=== PATIENT | female | born 1995 | race African-American/Black ===

== ENCOUNTER 2017-09-08 01:46 | Emergency (ER) | payer BC ==
[~2017-09-08] VITALS: Ht 170.2 cm; Wt 59.0 kg
[~2017-09-08 01:46] MED LIST: FOLI-43 PO; OXCA300T31 PO; PLAQUENIL PO; PRED5TAB48 PO
[2017-09-08] MEDS ORDERED: ACETAMINOPHEN 325MG TABLET PO STA (02:10)
[2017-09-08] MEDS ORDERED: SODIUM CHLORIDE 0.9% 1000ML BAG (SEPSIS BOLUS) IV ONE (02:15)
[2017-09-08 02:46] LABS: BASOPHILS % 0.3 % (0.0-2.0); EOSINOPHILS % 0.4 % (0.0-5.0); HEMATOCRIT. 22.4 % (36.0-48.0); HEMOGLOBIN. 7.7 g/dL (12.0-16.0); LYMPHOCYTES % 16.8 % (20.0-50.0); MEAN CORPUSCULAR HEMOGLOBIN 28.4 pg (28.0-32.0); MEAN CORPUSCULAR VOLUME 82.8 fL (81.0-99.0); MONOCYTES % 3.1 % (2.0-8.0); NEUTROPHILS % 79.4 % (40.0-76.0); RED BLOOD CELL COUNT 2.71 mill/uL (4.2-5.4); RED CELL DISTRIBUTION WIDTH 15.5 % (11.6-14.6)
[2017-09-08 02:51] LABS: CHLORIDE 102 mEq/L (98-107)
[2017-09-08 02:53] LABS: INR 1.2; PROTHROMBIN TIME 12.6 sec (9.4-11.6)
[2017-09-08 03:22] LABS: CLARITY URINE CLOUDY (CLEAR); COLOR URINE YELLOW (YELLOW); KETONES URINE NEGATIVE (NEGATIVE); LEUKOCYTE ESTERASE URINE 3+ (NEGATIVE); NITRITE URINE POSITIVE (NEGATIVE); OCCULT BLOOD URINE 2+ (NEGATIVE); PROTEIN URINE 2+ (NEGATIVE); SPECIFIC GRAVITY URINE 1.018 (1.005-1.030)
[2017-09-08 03:50] LABS: MEAN PLATELET VOLUME 11.2 fl (7.4-10.4)
[2017-09-08] MEDS ORDERED: POTASSIUM CHLORIDE 20MEQ TABLET SR PO ONE (04:30)
[2017-09-08] MEDS ORDERED: CEFTRIAXONE 1 G PREMIX 50 ML IV ONE (04:30)
[2017-09-08] MEDS ORDERED: HYDROCODONE/ACETAMINOPHEN 5/325MG TABLET PO ONE (05:15)
[2017-09-08 06:22] VITALS: BP 126/74
== END 2017-09-08 06:37 | disposition home or self-care (01) ==
LOC: ER 01:46
DX: N30.00 Acute cystitis without hematuria (principal); D64.9 Anemia, unspecified; E87.6 Hypokalemia; M32.9 Systemic lupus erythematosus, unspecified; R56.9 Unspecified convulsions; M41.9 Scoliosis, unspecified; F31.9 Bipolar disorder, unspecified
CPT/HCPCS: 36415; 71045; 80053; 81003; 81025; 85025; 85610; 87077; 87086; 87186; 87804; 93005; 96365; 99285; J0696; J7030; Z7610

== ENCOUNTER 2017-11-22 02:32 | Emergency (ER) | payer BC ==
[~2017-11-22] VITALS: Ht 175.3 cm; Wt 52.0 kg
[2017-11-22] MEDS ORDERED: OXCARBAZEPINE 300MG TABLET PO ONE (03:00)
[2017-11-22] MEDS ORDERED: SODIUM CHLORIDE 0.9% 1,000 ML IV ONE (03:00)
[2017-11-22 03:22] LABS: CHLORIDE 103 mEq/L (98-107)
[2017-11-22 03:26] LABS: BASOPHILS % 0.4 % (0.0-2.0); EOSINOPHILS % 3.2 % (0.0-5.0); HEMATOCRIT. 25.3 % (36.0-48.0); HEMOGLOBIN. 8.3 g/dL (12.0-16.0); LYMPHOCYTES % 29.8 % (20.0-50.0); MEAN CORPUSCULAR HEMOGLOBIN 27.7 pg (28.0-32.0); MEAN CORPUSCULAR VOLUME 83.9 fL (81.0-99.0); MEAN PLATELET VOLUME 9.4 fl (7.4-10.4); MONOCYTES % 3.1 % (2.0-8.0); NEUTROPHILS % 63.5 % (40.0-76.0); PLATELET 141 x1000/uL (130-400); RED BLOOD CELL COUNT 3.01 mill/uL (4.2-5.4); RED CELL DISTRIBUTION WIDTH 17.4 % (11.6-14.6)
[2017-11-22] MEDS ORDERED: ONDANSETRON HCL 4MG/2ML VIAL IV ONE (03:30)
[2017-11-22] MEDS ORDERED: MORPHINE SULFATE 4 MG/ML CPJ (NOT FOR IM USE) IV ONE (03:30)
[2017-11-22 09:06] VITALS: BP 134/76
== END 2017-11-22 09:17 | disposition home or self-care (01) ==
LOC: ER 02:35
DX: G40.909 Epilepsy, unspecified, not intractable, without status epilepticus (principal); M32.9 Systemic lupus erythematosus, unspecified; D64.9 Anemia, unspecified; F12.10 Cannabis abuse, uncomplicated; Z98.890 Other specified postprocedural states; Z91.018 Allergy to other foods; Z88.6 Allergy status to analgesic agent
CPT/HCPCS: 36415; 70450; 80053; 81025; 85025; 96374; 96375; 99285; J2270; J2405; J7030; Z7610

== ENCOUNTER 2018-02-26 19:42 | Inpatient (IN) | payer BC, MEDICAID ==
[~2018-02-26] VITALS: Ht 175.3 cm; Wt 56.7 kg
[2018-02-26] MEDS ORDERED: IBUPROFEN 600MG TABLET PO ONE (22:15)
[2018-02-26] MEDS ORDERED: SODIUM CHLORIDE 0.9% 1,000 ML IV ONE (22:15)
[2018-02-26 22:54] LABS: BASOPHILS % 0.3 % (0.0-2.0); EOSINOPHILS % 0.1 % (0.0-5.0); HEMATOCRIT. 34.9 % (36.0-48.0); HEMOGLOBIN. 11.6 g/dL (12.0-16.0); LYMPHOCYTES % 9.9 % (20.0-50.0); MEAN CORPUSCULAR HEMOGLOBIN 27.8 pg (28.0-32.0); MEAN CORPUSCULAR VOLUME 83.9 fL (81.0-99.0); MEAN PLATELET VOLUME 9.9 fl (7.4-10.4); MONOCYTES % 4.5 % (2.0-8.0); NEUTROPHILS % 85.2 % (40.0-76.0); PLATELET 55 x1000/uL (130-400); RED BLOOD CELL COUNT 4.16 mill/uL (4.2-5.4); RED CELL DISTRIBUTION WIDTH 13.8 % (11.6-14.6)
[2018-02-26 23:07] LABS: CHLORIDE 98 mEq/L (98-107)
[2018-02-27] VITALS (7 sets, daily range): BP systolic 130–150; BP diastolic 79–95
[2018-02-27] MEDS ORDERED: MORPHINE SULFATE 4 MG/ML CPJ (NOT FOR IM USE) IV ONE (02:45)
[2018-02-27] MEDS ORDERED: OXCARBAZEPINE 300MG TABLET PO ONE (02:45)
[2018-02-27] MEDS ORDERED: SODIUM CHLORIDE 0.9% 1,000 ML IV ONE (02:45)
[2018-02-27 03:20] LABS: *AMPHETAMINES SCREEN URINE NEGATIVE (NEGATIVE); *BARBITURATES SCREEN URINE NEGATIVE (NEGATIVE); *BENZODIAZEPINES SCREEN URINE NEGATIVE (NEGATIVE); CLARITY URINE CLOUDY (CLEAR); COLOR URINE YELLOW (YELLOW); KETONES URINE NEGATIVE (NEGATIVE); LEUKOCYTE ESTERASE URINE NEGATIVE (NEGATIVE); NITRITE URINE NEGATIVE (NEGATIVE); OCCULT BLOOD URINE 3+ (NEGATIVE); PH URINE 6.5 (4.5-8.0); PROTEIN URINE 3+ (NEGATIVE); SPECIFIC GRAVITY URINE 1.015 (1.005-1.030)
[2018-02-27 03:21] LABS: *COCAINE SCREEN URINE NEGATIVE (NEGATIVE); METHADONE URINE SCREEN NEGATIVE (NEGATIVE); PHENCYCLIDINE URINE SCREEN NEGATIVE (NEGATIVE)
[2018-02-27 03:31] LABS: CANNABINOID URINE SCREEN PRESUMTIVE POSITIVE (NEGATIVE); OPIATES URINE SCREEN PRESUMTIVE POSITIVE (NEGATIVE)
[2018-02-27] MEDS ORDERED: DIPHENHYDRAMINE 25MG CAPSULE PO ONE (04:30)
[2018-02-27] MEDS ORDERED: OXCA600T20 PO (10:06)
[2018-02-27] MEDS ORDERED: OXCA600T5 PO (10:06)
[2018-02-27] MEDS ORDERED: WARF10TA21 PO (10:10)
[2018-02-27] MEDS ORDERED: LISI10TA5 PO (10:11)
[2018-02-27] MEDS ORDERED: FERR236T3 MT (10:17)
[2018-02-27] MEDS ORDERED: ENTE0.5T4 PO (10:25)
[2018-02-27] MEDS ORDERED: MYCO250C MT (10:27)
[2018-02-27] MEDS ORDERED: CLONIDINE 0.1MG TABLET PO PRN (10:45)
[2018-02-27] MEDS ORDERED: IPRATROPIUM/ALBUTEROL 0.5-3(2.5)MG/3ML NEB INH PRN (10:45)
[2018-02-27] MEDS ORDERED: MAGNESIUM/ALUMINUM HYDROXIDE/SIMETHICONE 30ML UDC PO PRN (10:45)
[2018-02-27] MEDS ORDERED: ENTECAVIR 0.5 MG PO SCH (10:45)
[2018-02-27] MEDS ORDERED: ACETAMINOPHEN 650MG SUPP PR PRN (10:45)
[2018-02-27] MEDS ORDERED: ACETAMINOPHEN 650MG/20.3ML UDC GT PRN (10:45)
[2018-02-27] MEDS: MYCOPHENOLATE MOFETIL 250MG CAPSULE PO SCH ×2 (11:46→17:55)
[2018-02-27 11:49] LABS: BASOPHILS % 0.1 % (0.0-2.0); HEMATOCRIT. 30.1 % (36.0-48.0); HEMOGLOBIN. 10.2 g/dL (12.0-16.0); LYMPHOCYTES % 12.9 % (20.0-50.0); MEAN CORPUSCULAR VOLUME 82.8 fL (81.0-99.0); MEAN PLATELET VOLUME 8.4 fl (7.4-10.4); MONOCYTES % 6.3 % (2.0-8.0); NEUTROPHILS % 80.7 % (40.0-76.0); RED BLOOD CELL COUNT 3.63 mill/uL (4.2-5.4); RED CELL DISTRIBUTION WIDTH 13.6 % (11.6-14.6)
[2018-02-27] MEDS: MORPHINE SULFATE 4 MG/ML CPJ (NOT FOR IM USE) IV PRN ×2 (11:50→20:24)
[2018-02-27] MEDS ORDERED: SUMATRIPTAN SUCCINATE 6MG/0.5ML VIAL SUBCUT SCH (12:00)
[2018-02-27 12:03] LABS: PROTHROMBIN TIME 71.9 sec (9.1-11.1)
[2018-02-27] MEDS: PREDNISONE 20MG TABLET PO SCH (12:03)
[2018-02-27] MEDS: HYDROXYCHLOROQUINE SULFATE 200MG TABLET PO SCH (12:03)
[2018-02-27] MEDS: PREDNISONE 1MG TABLET PO SCH (12:03)
[2018-02-27] MEDS: OXCARBAZEPINE 300MG TABLET PO SCH ×2 (12:04→20:23)
[2018-02-27] MEDS ORDERED: METH8TAB5 PO (12:08)
[2018-02-27 12:11] LABS: CHLORIDE 105 mEq/L (98-107)
[2018-02-27 12:54] LABS: INR 7.4
[2018-02-27] MEDS ORDERED: PHYTONADIONE 1MG/0.5ML AMP IM ONE (13:00)
[2018-02-27] MEDS ORDERED: POTASSIUM CHLORIDE 20MEQ TABLET SR PO PRN (13:00)
[2018-02-27] MEDS ORDERED: PHYTONADIONE 1MG/0.5ML AMP PO ONE (13:30)
[2018-02-27] MEDS: SODIUM CHLORIDE 0.45% 1,000 ML IV SCH (13:48)
[2018-02-27] MEDS ORDERED: PHYTONADIONE 5 MG/5ML ORAL SYRINGE PO SCH (14:30)
[2018-02-27] MEDS ORDERED: LORAZEPAM 2MG/ML CPJ IV PRN (14:45)
[2018-02-27] MEDS: HYDROCODONE/ACETAMINOPHEN 5/325MG TABLET PO PRN ×2 (14:53→22:06)
[2018-02-27] MEDS: METHYLPREDNISOLONE 4MG TABLET PO SCH (15:00)
[2018-02-27 16:06] LABS: CLARITY URINE CLOUDY (CLEAR); COLOR URINE RED (YELLOW); KETONES URINE TRACE (NEGATIVE); LEUKOCYTE ESTERASE URINE 1+ (NEGATIVE); NITRITE URINE NEGATIVE (NEGATIVE); OCCULT BLOOD URINE 3+ (NEGATIVE); PH URINE 6.5 (4.5-8.0); PROTEIN URINE 3+ (NEGATIVE); UROBILINOGEN URINE 0.2 E.U./dL (0.2-1.0)
[2018-02-27 16:41] LABS: *AMPHETAMINES SCREEN URINE NEGATIVE (NEGATIVE); *BENZODIAZEPINES SCREEN URINE NEGATIVE (NEGATIVE); *COCAINE SCREEN URINE NEGATIVE (NEGATIVE); METHADONE URINE SCREEN NEGATIVE (NEGATIVE)
[2018-02-27 16:43] LABS: *BARBITURATES SCREEN URINE NEGATIVE (NEGATIVE); CANNABINOID URINE SCREEN NEGATIVE (NEGATIVE); PHENCYCLIDINE URINE SCREEN NEGATIVE (NEGATIVE)
[2018-02-27 16:44] LABS: OPIATES URINE SCREEN PRESUMTIVE POSITIVE (NEGATIVE)
[2018-02-27] MEDS ORDERED: MORPHINE SULFATE 4 MG/ML CPJ (NOT FOR IM USE) IV NR (17:45)
[2018-02-27] MEDS: FAMOTIDINE 20MG/2ML VIAL IV SCH (20:23)
[2018-02-27] MEDS: SODIUM CHLORIDE 0.9% INJ 3ML FLUSH IVF SCH (22:09)
[2018-02-28] VITALS (8 sets, daily range): BP systolic 142–148; BP diastolic 77–94
[2018-02-28] MEDS: ACETAMINOPHEN 325MG TABLET PO PRN ×2 (00:55→12:08)
[2018-02-28] MEDS: MORPHINE SULFATE 4 MG/ML CPJ (NOT FOR IM USE) IV PRN ×4 (02:39→21:07)
[2018-02-28] MEDS: SODIUM CHLORIDE 0.45% 1,000 ML IV SCH ×3 (02:40→22:28)
[2018-02-28] MEDS: ONDANSETRON HCL 4MG/2ML INJ IV PRN ×2 (04:07→21:07)
[2018-02-28] MEDS: HYDROCODONE/ACETAMINOPHEN 5/325MG TABLET PO PRN ×3 (04:07→20:11)
[2018-02-28] MEDS: SODIUM CHLORIDE 0.9% INJ 3ML FLUSH IVF SCH ×3 (05:02→22:04)
[2018-02-28 05:18] LABS: BASOPHILS % 0.1 % (0.0-2.0); EOSINOPHILS % 0.1 % (0.0-5.0); HEMATOCRIT. 28.9 % (36.0-48.0); HEMOGLOBIN. 9.7 g/dL (12.0-16.0); LYMPHOCYTES % 10.9 % (20.0-50.0); MEAN CORPUSCULAR HEMOGLOBIN 27.6 pg (28.0-32.0); MEAN CORPUSCULAR VOLUME 82.5 fL (81.0-99.0); MONOCYTES % 6.4 % (2.0-8.0); NEUTROPHILS % 82.5 % (40.0-76.0); RED BLOOD CELL COUNT 3.51 mill/uL (4.2-5.4); RED CELL DISTRIBUTION WIDTH 14.1 % (11.6-14.6)
[2018-02-28 05:22] LABS: INR 1.6; PROTHROMBIN TIME 15.6 sec (9.1-11.1)
[2018-02-28 05:29] LABS: CHLORIDE 102 mEq/L (98-107)
[2018-02-28 05:32] LABS: HDL CHOLESTEROL 24 mg/dL (40-59); LDL CHOLESTEROL 105 mg/dL (5-100)
[2018-02-28] MEDS ORDERED: POTASSIUM CHLORIDE 20MEQ TABLET SR PO SCH ×2 (06:45→10:00)
[2018-02-28] MEDS: METHYLPREDNISOLONE 4MG TABLET PO SCH (09:56)
[2018-02-28] MEDS: CEFTRIAXONE 1 G PREMIX 50 ML IV SCH (09:56)
[2018-02-28] MEDS: MYCOPHENOLATE MOFETIL 250MG CAPSULE PO SCH ×2 (09:56→20:11)
[2018-02-28] MEDS: FAMOTIDINE 20MG/2ML VIAL IV SCH ×2 (09:56→22:09)
[2018-02-28] MEDS: OXCARBAZEPINE 300MG TABLET PO SCH ×2 (09:56→22:04)
[2018-02-28] MEDS: HYDROXYCHLOROQUINE SULFATE 200MG TABLET PO SCH (10:19)
[2018-02-28] MEDS ORDERED: DIATR MEGLU/DIATRIZOATE SOLN 30ML PO NR (11:00)
[2018-02-28] MEDS: METOCLOPRAMIDE HCL 10MG/2ML VIAL IV SCH ×3 (12:08→23:58)
[2018-02-28] MEDS ORDERED: IOHEXOL-300 100 ML BOTTLE ONE ×2 (12:21→14:16)
[2018-02-28 12:49] LABS: HCG SCREEN NEGATIVE
[2018-02-28] MEDS: DOCUSATE SODIUM 250MG CAPSULE PO SCH (15:15)
[2018-02-28] MEDS: LORAZEPAM 2MG/ML CPJ IV PRN ×2 (17:45→23:58)
[2018-02-28] MEDS ORDERED: WARFARIN SODIUM 5MG TABLET PO SCH (18:00)
[2018-02-28 19:09] LABS: TOTAL IRON BINDING CAPACITY 221 ug/dL (250-450)
[2018-02-28 19:39] LABS: FOLIC ACID (FOLATE) SERUM 12.8 ng/mL (>5.38)
[2018-02-28] MEDS ORDERED: ALPRAZOLAM 0.25 MG TABLET PO PRN (21:30)
[2018-02-28] MEDS: METHYLPREDNISOLONE SOD SUCC 125 MG/2 ML VIAL IV SCH (23:57)
[2018-02-28] MEDS: PREGABALIN 25MG CAPSULE PO SCH (23:57)
[2018-03-01] VITALS (7 sets, daily range): BP systolic 136–153; BP diastolic 83–105
[2018-03-01] MEDS: METOCLOPRAMIDE HCL 10MG/2ML VIAL IV SCH ×4 (06:42→23:52)
[2018-03-01] MEDS: METHYLPREDNISOLONE SOD SUCC 125 MG/2 ML VIAL IV SCH ×4 (06:42→23:52)
[2018-03-01] MEDS: SODIUM CHLORIDE 0.45% 1,000 ML IV SCH ×3 (06:43→18:37)
[2018-03-01] MEDS: SODIUM CHLORIDE 0.9% INJ 3ML FLUSH IVF SCH ×3 (06:45→22:43)
[2018-03-01 06:51] LABS: HEMATOCRIT. 25.2 % (36.0-48.0); HEMOGLOBIN. 8.6 g/dL (12.0-16.0); MEAN CORPUSCULAR HEMOGLOBIN 28.2 pg (28.0-32.0); MEAN CORPUSCULAR VOLUME 82.2 fL (81.0-99.0); RED BLOOD CELL COUNT 3.07 mill/uL (4.2-5.4); RED CELL DISTRIBUTION WIDTH 14.1 % (11.6-14.6)
[2018-03-01 06:57] LABS: D-DIMER 3.97 mg/L FEU (<0.50); INR 1.2; PARTIAL THROMBOPLASTIN TIME 27.8 sec (23.4-31.0); PROTHROMBIN TIME 11.8 sec (9.1-11.1)
[2018-03-01 07:13] LABS: CHLORIDE 102 mEq/L (98-107)
[2018-03-01 07:30] LABS: AMYLASE 23 IU/L (25-115)
[2018-03-01] MEDS: OXCARBAZEPINE 300MG TABLET PO SCH ×2 (09:47→22:37)
[2018-03-01] MEDS: CEFTRIAXONE 1 G PREMIX 50 ML IV SCH (09:48)
[2018-03-01] MEDS: FAMOTIDINE 20MG/2ML VIAL IV SCH ×2 (09:48→20:45)
[2018-03-01] MEDS: MORPHINE SULFATE 4 MG/ML CPJ (NOT FOR IM USE) IV PRN ×3 (09:58→23:42)
[2018-03-01] MEDS: HYDROXYCHLOROQUINE SULFATE 200MG TABLET PO SCH (09:58)
[2018-03-01] MEDS: MYCOPHENOLATE MOFETIL 250MG CAPSULE PO SCH ×3 (09:58→22:37)
[2018-03-01] MEDS: DOCUSATE SODIUM 250MG CAPSULE PO SCH (09:58)
[2018-03-01] MEDS: PREGABALIN 25MG CAPSULE PO SCH (09:59)
[2018-03-01 13:06] LABS: DRVVT LA 99.5 sec (0.0-47.0); PTT-LA 56.5 sec (0.0-51.9)
[2018-03-01] MEDS: ALPRAZOLAM 0.5 MG TABLET PO NR ×2 (13:33→13:38)
[2018-03-01] MEDS ORDERED: WARFARIN SODIUM 7.5MG TABLET PO SCH (18:00)
[2018-03-01] MEDS: ONDANSETRON HCL 4MG/2ML INJ IV PRN (18:36)
[2018-03-01] MEDS: HYDROCODONE/ACETAMINOPHEN 5/325MG TABLET PO PRN (19:05)
[2018-03-01] MEDS: PREGABALIN 75MG CAPSULE PO SCH (20:48)
[2018-03-02 00:08] VITALS: BP 137/94
[2018-03-02 04:00] VITALS: BP 128/83
[2018-03-02] MEDS: METHYLPREDNISOLONE SOD SUCC 125 MG/2 ML VIAL IV SCH ×2 (05:21→12:58)
[2018-03-02] MEDS: METOCLOPRAMIDE HCL 10MG/2ML VIAL IV SCH ×2 (05:21→12:58)
[2018-03-02] MEDS: SODIUM CHLORIDE 0.45% 1,000 ML IV SCH (05:22)
[2018-03-02] MEDS: SODIUM CHLORIDE 0.9% INJ 3ML FLUSH IVF SCH (05:22)
[2018-03-02 05:27] LABS: DRVVT LA CONFIRMATION 1.4 ratio (0.8-1.2); DRVVT MIX LA 49.6 sec (0.0-47.0); LUPUS ANTICOAG INTERPRETATION Comment: (.); PTT-LA INCUB MIX 47.2 sec (0.0-48.9); PTT-LA MIX 43.4 sec (0.0-48.9)
[2018-03-02 05:38] VITALS: BP 128/83
[2018-03-02 07:37] LABS: BASOPHILS % 0.1 % (0.0-2.0); HEMATOCRIT. 23.7 % (36.0-48.0); HEMOGLOBIN. 8.3 g/dL (12.0-16.0); LYMPHOCYTES % 15.1 % (20.0-50.0); MEAN CORPUSCULAR HEMOGLOBIN 28.3 pg (28.0-32.0); MEAN CORPUSCULAR VOLUME 81.1 fL (81.0-99.0); MONOCYTES % 9.1 % (2.0-8.0); NEUTROPHILS % 75.7 % (40.0-76.0); RED BLOOD CELL COUNT 2.92 mill/uL (4.2-5.4); RED CELL DISTRIBUTION WIDTH 14.1 % (11.6-14.6)
[2018-03-02 08:00] VITALS: BP 134/94
[2018-03-02] MEDS ORDERED: ALPRAZOLAM 0.5 MG TABLET PO SCH (09:00)
[2018-03-02] MEDS: HYDROXYCHLOROQUINE SULFATE 200MG TABLET PO SCH (09:01)
[2018-03-02] MEDS: PREGABALIN 75MG CAPSULE PO SCH (09:02)
[2018-03-02] MEDS: DOCUSATE SODIUM 250MG CAPSULE PO SCH (09:02)
[2018-03-02] MEDS: FAMOTIDINE 20MG/2ML VIAL IV SCH (09:02)
[2018-03-02] MEDS: OXCARBAZEPINE 300MG TABLET PO SCH (09:02)
[2018-03-02 09:05] LABS: G6PD RBC 3.06 x10E6/uL (3.77-5.28)
[2018-03-02] MEDS: MORPHINE SULFATE 4 MG/ML CPJ (NOT FOR IM USE) IV PRN (09:09)
[2018-03-02] MEDS: LORAZEPAM 2MG/ML CPJ IV PRN (10:12)
[2018-03-02] MEDS ORDERED: MORPHINE SULFATE 4 MG/ML CPJ (NOT FOR IM USE) IV PRN (10:15)
[2018-03-02] MEDS ORDERED: LORAZEPAM 2MG/ML CPJ IM PRN (10:15)
[2018-03-02 12:00] VITALS: BP 149/98
[2018-03-02 12:04] VITALS: BP 149/98
[2018-03-02] MEDS ORDERED: CYANOCOBALAMIN 1000MCG/ML VIAL IM NR (12:45)
[2018-03-02] MEDS: ONDANSETRON HCL 4MG/2ML INJ IV PRN (12:54)
[2018-03-03 09:06] LABS: ANGIOTENSION CONVERTING ENZYME 39 U/L (14-82); ANTI-DNA DOUBLE STRANDED QUANT 102 IU/mL (0-9); COMPLEMENT C3 79 mg/dL (82-167); GLOMERULAR BASEMENT MEMB AB 4 units (0-20); RNP ANTIBODY 5.9 AI (0.0-0.9); SMITH ANTIBODY 7.2 AI (0.0-0.9)
[2018-03-03 15:06] LABS: ANTI-CARDIOLIPIN AB IGA < 9 APL U/mL (0-11); ANTI-CARDIOLIPIN AB IGG 21 GPL U/mL (0-14); ANTI-CARDIOLIPIN AB IGM 69 MPL U/mL (0-12); ANTI-MYELOPEROXIDASE AB < 9.0 U/mL (0.0-9.0); ANTI-PROTEINASE 3 ABS < 3.5 U/mL (0.0-3.5)
[2018-03-03 19:12] LABS: G6PD QUANTITATIVE 202 (146-376)
[2018-03-04 09:05] LABS: CYC CITRULLINATED PEP IgG/IgA 7 units (0-19)
[2018-03-04 13:06] LABS: ANA HOMOGENEOUS PATTERN >1:1280 (.); ANA IFA Positive (.)
[2018-03-04 15:09] LABS: ATYPICAL P-ANCA <1:20 titer (Neg:<1:20); CYTOPLASMIC C-ANCA <1:20 titer (Neg:<1:20); PERINUCLEAR P-ANCA <1:20 titer (Neg:<1:20)
[2018-03-05 04:13] LABS: HLA CLASS 1 ANTIBODY Positive (Negative); IIb/IIIa ANTIBODY Positive (Negative); Ib/IX ANTIBODY Positive (Negative)
== END 2018-03-02 13:10 | disposition short-term general hospital (02) | DRG 813 ==
LOC: ER 19:42 → EDBEDREQTM 02-27 03:14 → EDBEDREQ 02-27 03:14 → ENRESERV 02-27 09:09 → 5WST 02-27 09:55
PROVIDERS: ADMIT Family Medicine; ATTEND Family Medicine
PROC: 30233L1 Transfusion of Nonautologous Fresh Plasma into Peripheral Vein, Percutaneous Approach (ICD-10-PCS; 2018-02-27)
PROC: 30233K1 Transfusion of Nonautologous Frozen Plasma into Peripheral Vein, Percutaneous Approach (ICD-10-PCS; 2018-02-27)
PROC: 30233R1 Transfusion of Nonautologous Platelets into Peripheral Vein, Percutaneous Approach (ICD-10-PCS; principal; 2018-02-28)
DX: D68.32 Hemorrhagic disorder due to extrinsic circulating anticoagulants (principal); E44.0 Moderate protein-calorie malnutrition; D61.818 Other pancytopenia; D68.61 Antiphospholipid syndrome; M32.12 Pericarditis in systemic lupus erythematosus; N10 Acute pyelonephritis; E87.6 Hypokalemia; T45.515A Adverse effect of anticoagulants, initial encounter; G40.909 Epilepsy, unspecified, not intractable, without status epilepticus; I10 Essential (primary) hypertension; D63.8 Anemia in other chronic diseases classified elsewhere; D69.59 Other secondary thrombocytopenia; N81.0 Urethrocele; R31.9 Hematuria, unspecified; M32.14 Glomerular disease in systemic lupus erythematosus; G93.0 Cerebral cysts; E53.8 Deficiency of other specified B group vitamins; F41.9 Anxiety disorder, unspecified; G43.909 Migraine, unspecified, not intractable, without status migrainosus; H53.2 Diplopia; M13.0 Polyarthritis, unspecified; M79.7 Fibromyalgia; N83.209 Unspecified ovarian cyst, unspecified side; Z96.659 Presence of unspecified artificial knee joint; Z98.2 Presence of cerebrospinal fluid drainage device; Z79.01 Long term (current) use of anticoagulants; Z86.711 Personal history of pulmonary embolism; Z88.9 Allergy status to unspecified drugs, medicaments and biological substances; Y92.89 Other specified places as the place of occurrence of the external cause
CPT/HCPCS: 36415; 74018; 74177; 76830; 76856; 80048; 80061; 80305; 81025; 82150; 82164; 82607; 82728; 82746; 82955; 83036; 83520; 83540; 83550; 84132; 84550; 84703; 85018; 85041; 85044; 85379; 85384; 85613; 85651; 85732; 86022; 86140; 86147; 86160; 86200; 86225; 86235; 86256; 86431; 86592; 86593; 86780; 86850; 86880; 86900; 86927; 86945; 93970; 96361; 96374; 99285; J0696; J2060; J2270; J2405; J2765; J2930; J3030; J3420; J3430; J3490; J7030; J7040; J7509; J7512; J7517; P9017; P9034; Q0163; Q9967

== ENCOUNTER 2019-08-28 02:22 | Emergency (ER) | payer BC, MEDICAID ==
[~2019-08-28] VITALS: Ht 165.1 cm; Wt 57.0 kg
[~2019-08-28 02:22] MED LIST changes: +ENTE0.5T4 PO; +FERR236T3 MT; -FOLI-43 PO; +LISI10TA5 PO; +METH8TAB5 PO; +MYCO250C MT; -OXCA300T31 PO; +OXCA600T20 PO; +OXCA600T5 PO; -PRED5TAB48 PO; +WARF10TA21 PO
[2019-08-28] MEDS ORDERED: HYDROCODONE/ACETAMINOPHEN 5/325MG TABLET PO ONE (02:45)
[2019-08-28 03:49] VITALS: BP 145/89
== END 2019-08-28 04:12 | disposition home or self-care (01) ==
LOC: ER 02:22
DX: M54.89 Other dorsalgia (principal); G89.29 Other chronic pain; M32.9 Systemic lupus erythematosus, unspecified; M79.7 Fibromyalgia; G40.909 Epilepsy, unspecified, not intractable, without status epilepticus; N28.9 Disorder of kidney and ureter, unspecified; Z86.19 Personal history of other infectious and parasitic diseases; Z79.01 Long term (current) use of anticoagulants; Z88.8 Allergy status to other drugs, medicaments and biological substances; Z91.018 Allergy to other foods
CPT/HCPCS: 81025; 99283

== ENCOUNTER 2020-08-15 18:03 | Emergency (ER) | payer MEDICAID ==
[~2020-08-15] VITALS: Ht 170.2 cm; Wt 55.0 kg
[~2020-08-15 18:03] MED LIST changes: +LISI10TA26 PO; -LISI10TA5 PO
[2020-08-15 19:24] LABS: CLARITY URINE CLEAR (CLEAR); COLOR URINE YELLOW (YELLOW); KETONES URINE NEGATIVE (NEGATIVE); LEUKOCYTE ESTERASE URINE NEGATIVE (NEGATIVE); NITRITE URINE NEGATIVE (NEGATIVE); OCCULT BLOOD URINE NEGATIVE (NEGATIVE); PROTEIN URINE 2+ (NEGATIVE); SPECIFIC GRAVITY URINE 1.014 (1.005-1.030); UROBILINOGEN URINE 0.2 E.U./dL (0.2-1.0)
[2020-08-15 19:24] LABS: HEMATOCRIT. 35.8 % (36.0-48.0); HEMOGLOBIN. 12.1 g/dL (12.0-16.0); LYMPHOCYTES % 40.4 % (20.0-50.0); MEAN CORPUSCULAR HEMOGLOBIN 30.9 pg (28.0-32.0); MEAN PLATELET VOLUME 9.4 fl (7.4-10.4); MONOCYTES % 6.6 % (2.0-8.0); PLATELET 160 x1000/uL (130-400); RED BLOOD CELL COUNT 3.93 mill/uL (4.2-5.4); RED CELL DISTRIBUTION WIDTH 13.8 % (11.6-14.6)
[2020-08-15 19:29] LABS: CHLORIDE 107 mEq/L (98-107)
[2020-08-15 19:33] LABS: HCG SCREEN NEGATIVE
[2020-08-15 19:38] LABS: *AMPHETAMINES SCREEN URINE NEGATIVE (NEGATIVE); *BARBITURATES SCREEN URINE NEGATIVE (NEGATIVE); *BENZODIAZEPINES SCREEN URINE NEGATIVE (NEGATIVE); *COCAINE SCREEN URINE NEGATIVE (NEGATIVE)
[2020-08-15 19:39] LABS: METHADONE URINE SCREEN NEGATIVE (NEGATIVE); OPIATES URINE SCREEN NEGATIVE (NEGATIVE); PHENCYCLIDINE URINE SCREEN NEGATIVE (NEGATIVE)
[2020-08-15 19:40] LABS: CANNABINOID URINE SCREEN PRESUMTIVE POSITIVE (NEGATIVE)
[2020-08-15] MEDS ORDERED: ACETAMINOPHEN 325MG TABLET PO NR (20:15)
[2020-08-15 21:00] VITALS: BP 130/83
== END 2020-08-15 21:19 | disposition home or self-care (01) ==
LOC: ER 18:03
DX: R10.30 Lower abdominal pain, unspecified (principal); N28.89 Other specified disorders of kidney and ureter; R74.01 Elevation of levels of liver transaminase levels; M79.7 Fibromyalgia; M32.9 Systemic lupus erythematosus, unspecified; R56.9 Unspecified convulsions; Z88.1 Allergy status to other antibiotic agents; Z88.8 Allergy status to other drugs, medicaments and biological substances; Z79.01 Long term (current) use of anticoagulants
CPT/HCPCS: 36415; 76830; 76856; 80053; 80305; 81003; 81025; 84703; 85025; 99284

== ENCOUNTER 2020-09-02 15:12 | Emergency (ER) | payer MEDICAID ==
[~2020-09-02] VITALS: Ht 175.3 cm; Wt 66.0 kg
[2020-09-02] MEDS ORDERED: TETANUS, DIPHTHERIA, PERTUSSIS VAC/PF 0.5ML (>7YR OLD) IM ONE (16:30)
[2020-09-02] MEDS: ACETAMINOPHEN WITH CODEINE 300/30MG TABLET PO ONE ×2 (16:30→17:50)
[2020-09-02] MEDS ORDERED: BACITRACIN ZINC OINT UDPKT TOP ONE (16:30)
[2020-09-02 17:41] LABS: BASOPHILS % 0.3 % (0.0-2.0); HEMATOCRIT. 35.7 % (36.0-48.0); HEMOGLOBIN. 12.2 g/dL (12.0-16.0); LYMPHOCYTES % 20.3 % (20.0-50.0); MEAN CORPUSCULAR HEMOGLOBIN 31.3 pg (28.0-32.0); MEAN CORPUSCULAR VOLUME 91.3 fL (81.0-99.0); MONOCYTES % 6.9 % (2.0-8.0); NEUTROPHILS % 72.5 % (40.0-76.0); PLATELET 149 x1000/uL (130-400); RED BLOOD CELL COUNT 3.91 mill/uL (4.2-5.4); RED CELL DISTRIBUTION WIDTH 13.9 % (11.6-14.6)
[2020-09-02 19:01] VITALS: BP 130/89
== END 2020-09-02 19:03 | disposition home or self-care (01) ==
LOC: ER 15:12
DX: S92.355A Nondisplaced fracture of fifth metatarsal bone, left foot, initial encounter for closed fracture (principal); S01.21XA Laceration without foreign body of nose, initial encounter; S09.8XXA Other specified injuries of head, initial encounter; F31.9 Bipolar disorder, unspecified; G40.909 Epilepsy, unspecified, not intractable, without status epilepticus; M32.9 Systemic lupus erythematosus, unspecified; M79.7 Fibromyalgia; F12.10 Cannabis abuse, uncomplicated; Z88.8 Allergy status to other drugs, medicaments and biological substances; Z91.018 Allergy to other foods; Y04.0XXA Assault by unarmed brawl or fight, initial encounter; Y93.89 Activity, other specified; Y92.89 Other specified places as the place of occurrence of the external cause
CPT/HCPCS: 36415; 73590; 73610; 73630; 81025; 85025; 90471; 90715; 99284; Z7610

== ENCOUNTER 2020-12-04 20:15 | Emergency (ER) | payer MEDICAID ==
[~2020-12-04] VITALS: Ht 175.3 cm; Wt 59.0 kg
[2020-12-04 20:55] VITALS: BP 121/79
[2020-12-04] MEDS ORDERED: OXCA600T20 MT (21:15)
[2020-12-04] MEDS ORDERED: OXCA300T31 MT (21:15)
== END 2020-12-04 21:18 | disposition home or self-care (01) ==
LOC: ER 20:20
DX: Z76.0 Encounter for issue of repeat prescription (principal); M32.9 Systemic lupus erythematosus, unspecified; G40.909 Epilepsy, unspecified, not intractable, without status epilepticus; M79.7 Fibromyalgia; F12.10 Cannabis abuse, uncomplicated; Z98.890 Other specified postprocedural states; Z88.8 Allergy status to other drugs, medicaments and biological substances; Z91.018 Allergy to other foods
CPT/HCPCS: 99281

== ENCOUNTER 2021-01-01 20:34 | Emergency (ER) | payer MEDICAID ==
[~2021-01-01] VITALS: Ht 175.3 cm; Wt 59.0 kg
[~2021-01-01 20:34] MED LIST changes: +OXCA300T31 MT; +OXCA600T20 MT
[2021-01-01 20:59] VITALS: BP 126/81
[2021-01-01] MEDS ORDERED: OXCARBAZEPINE 300MG TABLET PO STA (21:23)
[2021-01-01] MEDS ORDERED: OXCA600T20 PO (21:25)
== END 2021-01-01 21:52 | disposition home or self-care (01) ==
LOC: ER 20:34
DX: Z76.0 Encounter for issue of repeat prescription (principal); G40.909 Epilepsy, unspecified, not intractable, without status epilepticus
CPT/HCPCS: 99283

== ENCOUNTER 2021-01-20 12:15 | Emergency (ER) | payer MEDICAID ==
[~2021-01-20] VITALS: Ht 172.7 cm; Wt 65.0 kg
[~2021-01-20 12:15] MED LIST changes: +ENTE0.5T11 PO; -ENTE0.5T4 PO
[2021-01-20 12:23] VITALS: BP 132/90
[2021-01-20] MEDS ORDERED: OXCARBAZEPINE 300MG TABLET PO ONE (12:45)
== END 2021-01-20 14:24 | disposition home or self-care (01) ==
LOC: ER 12:15
DX: Z76.0 Encounter for issue of repeat prescription (principal); G40.909 Epilepsy, unspecified, not intractable, without status epilepticus; M32.9 Systemic lupus erythematosus, unspecified; F31.9 Bipolar disorder, unspecified; F12.10 Cannabis abuse, uncomplicated; Z88.8 Allergy status to other drugs, medicaments and biological substances
CPT/HCPCS: 99283

== ENCOUNTER 2021-02-01 22:51 | Emergency (ER) | payer MEDICAID ==
[~2021-02-01] VITALS: Ht 177.8 cm; Wt 54.0 kg
[2021-02-01 23:16] VITALS: BP 139/95
[2021-02-02] MEDS ORDERED: OXCARBAZEPINE 300MG TABLET PO ONE (00:45)
== END 2021-02-02 01:09 | disposition home or self-care (01) ==
LOC: ER 22:51
DX: Z76.0 Encounter for issue of repeat prescription (principal); I10 Essential (primary) hypertension; F12.10 Cannabis abuse, uncomplicated; Z79.899 Other long term (current) drug therapy
CPT/HCPCS: 99283

== ENCOUNTER 2021-03-04 13:31 | Emergency (ER) | payer MEDICAID ==
[~2021-03-04] VITALS: Ht 175.3 cm; Wt 55.0 kg
[2021-03-04] MEDS ORDERED: FOLI-43 MT (14:25)
[2021-03-04] MEDS ORDERED: OXCA300T31 MT (14:25)
[2021-03-04] MEDS ORDERED: OXCA600T20 MT (14:25)
[2021-03-04] MEDS ORDERED: OXCARBAZEPINE 300MG TABLET PO SCH (14:30)
[2021-03-04 15:06] VITALS: BP 127/67
== END 2021-03-04 15:08 | disposition home or self-care (01) ==
LOC: ER 13:31
DX: R56.9 Unspecified convulsions (principal); Z76.0 Encounter for issue of repeat prescription; I10 Essential (primary) hypertension; F12.10 Cannabis abuse, uncomplicated; Z98.890 Other specified postprocedural states; Z79.899 Other long term (current) drug therapy
CPT/HCPCS: 99283

== ENCOUNTER 2021-03-24 17:37 | Emergency (ER) | payer MEDICAID ==
[~2021-03-24] VITALS: Ht 175.3 cm; Wt 54.0 kg
[~2021-03-24 17:37] MED LIST changes: +FOLI-43 MT
[2021-03-24 17:44] VITALS: BP 129/89
[2021-03-24] MEDS ORDERED: OXCA600T20 MT (19:06)
[2021-03-25] MEDS ORDERED: OXCA600T20 MT (23:19)
== END 2021-03-24 20:11 | disposition home or self-care (01) ==
LOC: ER 17:37
DX: G43.909 Migraine, unspecified, not intractable, without status migrainosus (principal); Z76.0 Encounter for issue of repeat prescription; I10 Essential (primary) hypertension; M32.9 Systemic lupus erythematosus, unspecified; Z86.73 Personal history of transient ischemic attack (TIA), and cerebral infarction without residual deficits; F12.10 Cannabis abuse, uncomplicated; F17.200 Nicotine dependence, unspecified, uncomplicated; Z98.890 Other specified postprocedural states; Z79.899 Other long term (current) drug therapy; Z88.8 Allergy status to other drugs, medicaments and biological substances; Z88.6 Allergy status to analgesic agent
CPT/HCPCS: 99283

== ENCOUNTER 2021-03-25 12:09 | Emergency (ER) | payer MEDICAID ==
[~2021-03-25] VITALS: Ht 175.3 cm; Wt 54.0 kg
[2021-03-25] MEDS ORDERED: OXCARBAZEPINE 300MG TABLET PO STA (12:49)
[2021-03-25 15:05] VITALS: BP 124/69
[2021-03-25] MEDS ORDERED: OXCARBAZEPINE 300MG TABLET PO SCH (21:00)
[2021-03-25] MEDS ORDERED: OXCA600T20 MT (23:19)
== END 2021-03-25 15:07 | disposition home or self-care (01) ==
LOC: ER 12:09
DX: G40.909 Epilepsy, unspecified, not intractable, without status epilepticus (principal); F12.10 Cannabis abuse, uncomplicated; I10 Essential (primary) hypertension; Z88.8 Allergy status to other drugs, medicaments and biological substances; Z76.0 Encounter for issue of repeat prescription; Z91.018 Allergy to other foods; Z79.899 Other long term (current) drug therapy; Z86.73 Personal history of transient ischemic attack (TIA), and cerebral infarction without residual deficits; Z86.59 Personal history of other mental and behavioral disorders; Z98.890 Other specified postprocedural states
CPT/HCPCS: 99283

== ENCOUNTER 2021-03-25 19:40 | Emergency (ER) | payer MEDICAID ==
[~2021-03-25] VITALS: Ht 175.3 cm; Wt 55.0 kg
[2021-03-25] MEDS ORDERED: OXCARBAZEPINE 300MG TABLET PO ONE (22:45)
[2021-03-25] MEDS ORDERED: OXCA600T20 MT (23:19)
[2021-03-25 23:38] VITALS: BP 127/77
== END 2021-03-25 23:40 | disposition home or self-care (01) ==
LOC: ER 19:40
DX: Z76.0 Encounter for issue of repeat prescription (principal); F12.10 Cannabis abuse, uncomplicated; Z88.8 Allergy status to other drugs, medicaments and biological substances; Z91.018 Allergy to other foods; Z79.899 Other long term (current) drug therapy; Z86.59 Personal history of other mental and behavioral disorders; Z98.890 Other specified postprocedural states
CPT/HCPCS: 99283

== ENCOUNTER 2021-06-28 11:06 | Emergency (ER) | payer MEDICAID ==
[~2021-06-28] VITALS: Ht 175.3 cm; Wt 45.0 kg
[2021-06-28 13:29] LABS: BASOPHILS % 0.4 % (0.0-2.0); HEMATOCRIT. 41.9 % (36.0-48.0); HEMOGLOBIN. 14.1 g/dL (12.0-16.0); LYMPHOCYTES % 38.5 % (20.0-50.0); MEAN CORPUSCULAR HEMOGLOBIN 30.5 pg (28.0-32.0); MEAN CORPUSCULAR VOLUME 90.6 fL (81.0-99.0); MEAN PLATELET VOLUME 10.2 fl (7.4-10.4); MONOCYTES % 9.3 % (2.0-8.0); NEUTROPHILS % 51.8 % (40.0-76.0); PLATELET 135 x1000/uL (130-400); RED BLOOD CELL COUNT 4.63 mill/uL (4.2-5.4)
[2021-06-28 13:41] LABS: CHLORIDE 106 mEq/L (98-107)
[2021-06-28 13:54] LABS: B-HCG QUANTITATIVE < 1 mIU/mL (<3)
[2021-06-28 14:34] VITALS: BP 134/65
== END 2021-06-28 14:37 | disposition home or self-care (01) ==
LOC: ER 11:08
DX: Z32.02 Encounter for pregnancy test, result negative (principal); G40.909 Epilepsy, unspecified, not intractable, without status epilepticus; M32.9 Systemic lupus erythematosus, unspecified; M79.7 Fibromyalgia; F12.10 Cannabis abuse, uncomplicated; Z98.890 Other specified postprocedural states; Z88.8 Allergy status to other drugs, medicaments and biological substances; Z91.018 Allergy to other foods
CPT/HCPCS: 36415; 80053; 84702; 85025; 86850; 86870; 86900; 99283

== ENCOUNTER 2021-11-21 17:42 | Emergency (ER) | payer MEDICAID ==
[~2021-11-21] VITALS: Ht 175.3 cm; Wt 55.0 kg
[2021-11-21] MEDS ORDERED: OXCARBAZEPINE 300MG TABLET PO STA (22:36)
[2021-11-21] MEDS ORDERED: OXCA600T20 MT (22:40)
[2021-11-21] MEDS ORDERED: OXCARBAZEPINE 300MG TABLET PO NR (23:00)
[2021-11-22 00:22] VITALS: BP 111/74
== END 2021-11-22 00:22 | disposition home or self-care (01) ==
LOC: ER 17:42
DX: G40.909 Epilepsy, unspecified, not intractable, without status epilepticus (principal); Z76.0 Encounter for issue of repeat prescription; Z79.899 Other long term (current) drug therapy; Z86.59 Personal history of other mental and behavioral disorders; Z98.890 Other specified postprocedural states
CPT/HCPCS: 99283

== ENCOUNTER 2022-04-05 15:41 | Emergency (ER) | payer MEDICAID ==
[~2022-04-05] VITALS: Ht 172.7 cm; Wt 75.0 kg
[2022-04-05 15:55] VITALS: BP 140/99
[2022-04-05] MEDS ORDERED: OXCA300T31 MT (20:28)
== END 2022-04-05 20:52 | disposition home or self-care (01) ==
LOC: ER 15:41
DX: G40.909 Epilepsy, unspecified, not intractable, without status epilepticus (principal); Z76.0 Encounter for issue of repeat prescription; M79.7 Fibromyalgia; F12.10 Cannabis abuse, uncomplicated; Z79.899 Other long term (current) drug therapy
CPT/HCPCS: 99281

== ENCOUNTER 2022-05-13 17:50 | Emergency (ER) | payer MEDICAID ==
[~2022-05-13] VITALS: Ht 175.3 cm; Wt 56.0 kg
[2022-05-13 17:59] VITALS: BP 111/68
[2022-05-13] MEDS ORDERED: OXCA600T20 PO (18:32)
== END 2022-05-13 18:48 | disposition home or self-care (01) ==
LOC: ER 17:50
DX: Z76.0 Encounter for issue of repeat prescription (principal); G40.909 Epilepsy, unspecified, not intractable, without status epilepticus; M32.9 Systemic lupus erythematosus, unspecified; F12.10 Cannabis abuse, uncomplicated; Z88.8 Allergy status to other drugs, medicaments and biological substances; Z91.018 Allergy to other foods
CPT/HCPCS: 99281

== ENCOUNTER 2022-07-04 19:40 | Emergency (ER) | payer MEDICAID ==
[~2022-07-04] VITALS: Ht 177.8 cm; Wt 56.5 kg
[2022-07-04 19:58] VITALS: BP 144/96
[2022-07-04] MEDS ORDERED: OXCA600T20 MT ×3 (22:50→22:51)
[2022-07-04] MEDS ORDERED: OXCARBAZEPINE 300MG TABLET PO SCH (23:30)
[2022-07-05] MEDS ORDERED: OXCARBAZEPINE 300MG TABLET PO SCH (09:00)
== END 2022-07-04 23:28 | disposition home or self-care (01) ==
LOC: ER 19:40
DX: Z76.0 Encounter for issue of repeat prescription (principal); M32.9 Systemic lupus erythematosus, unspecified; G40.909 Epilepsy, unspecified, not intractable, without status epilepticus; F12.10 Cannabis abuse, uncomplicated; Z98.890 Other specified postprocedural states; Z88.8 Allergy status to other drugs, medicaments and biological substances; Z91.018 Allergy to other foods
CPT/HCPCS: 99283

== ENCOUNTER 2022-09-07 23:11 | Emergency (ER) | payer MEDICAID, OTHER ==
[~2022-09-07] VITALS: Ht 176.5 cm; Wt 52.9 kg
[2022-09-07 23:26] VITALS: BP 113/68
[2022-09-08] MEDS ORDERED: OXCARBAZEPINE 300MG TABLET PO SCH ×2 (03:00→03:30)
[2022-09-08] MEDS ORDERED: DIPH35CR TP (03:00)
[2022-09-08] MEDS ORDERED: OXCA600T20 MT (03:00)
== END 2022-09-08 03:23 | disposition home or self-care (01) ==
LOC: ER 23:11
DX: T78.40XA Allergy, unspecified, initial encounter (principal); X58.XXXA Exposure to other specified factors, initial encounter; L85.3 Xerosis cutis; Z76.0 Encounter for issue of repeat prescription; F31.9 Bipolar disorder, unspecified; F12.10 Cannabis abuse, uncomplicated; Z79.899 Other long term (current) drug therapy
CPT/HCPCS: 81025; 99283

== ENCOUNTER 2023-05-18 17:49 | Emergency (ER) | payer MEDICAID ==
[~2023-05-18] VITALS: Ht 172.7 cm; Wt 61.0 kg
[~2023-05-18 17:49] MED LIST changes: +DIPH35CR TP
[2023-05-18 18:00] VITALS: O2SAT 99
[2023-05-18] MEDS ORDERED: AZIT250T12 MT (20:05)
[2023-05-18] MEDS ORDERED: AZITHROMYCIN 500 MG TABLET PO ONE (20:15)
[2023-05-18 21:04] VITALS: BP 134/90; PULSE 99; RESP 16; TEMP 99
== END 2023-05-18 21:08 | disposition home or self-care (01) ==
LOC: ER 17:49
DX: J18.9 Pneumonia, unspecified organism (principal); F31.9 Bipolar disorder, unspecified; G40.909 Epilepsy, unspecified, not intractable, without status epilepticus; Z98.890 Other specified postprocedural states; Z88.8 Allergy status to other drugs, medicaments and biological substances
CPT/HCPCS: 71046; 99283

== ENCOUNTER 2023-11-29 09:57 | Emergency (ER) | payer MEDICAID ==
[~2023-11-29] VITALS: Ht 167.6 cm; Wt 58.0 kg
[~2023-11-29 09:57] MED LIST changes: +AZIT250T12 MT
[2023-11-29 10:05] VITALS: BP 136/86; PULSE 89; RESP 18; TEMP 98.5; O2SAT 99
[2023-11-29] MEDS ORDERED: OXCA600T20 MT (10:20)
[2023-11-29] MEDS: OXCARBAZEPINE 300MG TABLET PO SCH (10:59)
== END 2023-11-29 11:56 | disposition home or self-care (01) ==
LOC: ER 09:57
DX: G40.909 Epilepsy, unspecified, not intractable, without status epilepticus (principal); F31.9 Bipolar disorder, unspecified; F12.90 Cannabis use, unspecified, uncomplicated; Z76.0 Encounter for issue of repeat prescription; Z88.8 Allergy status to other drugs, medicaments and biological substances; Z98.890 Other specified postprocedural states; Z79.899 Other long term (current) drug therapy
CPT/HCPCS: 99283

== ENCOUNTER 2024-03-02 11:18 | Emergency (ER) | payer MEDICAID ==
[~2024-03-02] VITALS: Ht 177.8 cm; Wt 55.0 kg
[2024-03-02 11:34] VITALS: O2SAT 100
[2024-03-02] MEDS ORDERED: OXCA600T5 MT (13:21)
[2024-03-02 13:30] VITALS: BP 125/66; PULSE 81; RESP 16; TEMP 36.78072; O2SAT 100
== END 2024-03-02 13:30 | disposition home or self-care (01) ==
LOC: ER 11:31
DX: R56.9 Unspecified convulsions (principal); F12.10 Cannabis abuse, uncomplicated; Z76.0 Encounter for issue of repeat prescription; Z79.899 Other long term (current) drug therapy; Z91.018 Allergy to other foods; Z88.6 Allergy status to analgesic agent; Z88.4 Allergy status to anesthetic agent; Z86.59 Personal history of other mental and behavioral disorders; Z98.890 Other specified postprocedural states
CPT/HCPCS: 99281

== ENCOUNTER 2024-12-01 15:58 | Emergency (ER) | payer MEDICAID ==
[~2024-12-01] VITALS: Ht 177.8 cm; Wt 55.0 kg
[~2024-12-01 15:58] MED LIST changes: +OXCA600T5 MT
[2024-12-01 16:09] VITALS: O2SAT 100
[2024-12-01] MEDS ORDERED: OXCA600T20 MT (16:56)
[2024-12-01 17:13] VITALS: BP 114/73; PULSE 67; RESP 18; TEMP 36.9; O2SAT 99
== END 2024-12-01 17:14 | disposition home or self-care (01) ==
LOC: ER 15:58
DX: R56.9 Unspecified convulsions (principal); F12.10 Cannabis abuse, uncomplicated; F31.9 Bipolar disorder, unspecified; Z76.0 Encounter for issue of repeat prescription; Z88.8 Allergy status to other drugs, medicaments and biological substances; Z88.6 Allergy status to analgesic agent; Z79.899 Other long term (current) drug therapy; Z91.018 Allergy to other foods; Z98.890 Other specified postprocedural states
CPT/HCPCS: 99281